=== PATIENT | female | born 1940 | race Hispanic/Latino ===

== ENCOUNTER 2021-12-28 14:00 | Inpatient (IN) | payer MEDICARE ==
[~2021-12-28] VITALS: Ht 147.3 cm; Wt 79.7 kg
[2021-12-28 16:31] LABS: BASOPHILS % (AUTO) 0.8 % (0.0-5.0); EOSINOPHILS % (AUTO) 3.8 % (0.0-8.0); HEMATOCRIT 38.9 % (36-48); LYMPHOCYTES % (AUTO) 24.1 % (21.0-51.0); MEAN CORPUSCULAR HEMOGLOBIN 29.6 pg (27.0-33.0); MEAN CORPUSCULAR HGB CONC 31.6 g/dL (32.0-36.0); MEAN CORPUSCULAR VOLUME 93.5 fL (79-99); MONOCYTES % (AUTO) 8.7 % (3.0-13.0); NEUTROPHILS % (AUTO) 62.3 % (40.0-77.0); PLATELET COUNT (AUTO) 383 K/uL (130-400); RED BLOOD CELL COUNT(AUTO) 4.16 MIL/uL (4.00-5.50); RED CELL DISTRIBUTION WIDTH 13.3 % (11.0-15.5); WHITE BLOOD COUNT (AUTO) 9.1 K/uL (4.8-10.8)
[2021-12-28 16:37] LABS: APPEARANCE,URINE Clear (CLEAR); BILIRUBIN,URINE Negative (NEGATIVE); COLOR,URINE Dark Yellow (YELLOW); GLUCOSE, URINE (UA) Negative (NEGATIVE); KETONES,URINE 15 mg/dL (NEGATIVE); LEUKOCYTE ESTERASE ,URINE Small (NEGATIVE); NITRATE,URINE Negative (NEGATIVE); OCCULT BLOOD,URINE Negative (NEGATIVE); PROTEIN,URINE Trace mg/dL (NEGATIVE)
[2021-12-28 16:44] LABS: ALBUMIN 3.6 g/dL (3.5-5.0); CARBON DIOXIDE 28 mmol/L (21-32); CHLORIDE 105 mmol/L (101-111); CREATININE 1.1 mg/dL (0.5-1.5); GLOMERULAR FILTR. RATE CALC 51 mL/min (>60); GLUCOSE,RANDOM 97 mg/dL (70-105); SODIUM SERUM 140 mmol/L (136-145); UREA NITROGEN, BLOOD 19 mg/dL (7-18)
[2021-12-28 16:45] LABS: INR 0.93 (0.85-1.15); PROTHROMBIN TIME 9.6 SEC (9.6-11.6)
[2021-12-28 16:54] LABS: CRP QUANTITATIVE < 2.00 mg/L (0.00-9.0)
[2021-12-28 17:06] LABS: BACTERIA,URINE Few /HPF (None Seen); RBC,URINE 0-1 /HPF (0-1)
[2021-12-28 17:07] LABS: MUCUS,URINE Few LPF (None Seen); SQUAMOUS EPITHELIAL CELL,UR Few /HPF (0-2)
[2021-12-28 17:41] VITALS: BP 165/67
[2021-12-31] VITALS (27 sets, daily range): BP systolic 110–146; BP diastolic 60–84
[2021-12-31] MEDS ORDERED: CEFAZOLIN SODIUM 1 GM VIAL IVP SCH (06:00)
[2021-12-31] MEDS ORDERED: LACTATED RINGERS 1000ML 1,000 ML IV ONE (06:45)
[2021-12-31] MEDS ORDERED: SIMV10TA97 PO (07:04)
[2021-12-31] MEDS ORDERED: LEVO75CA5 PO (07:04)
[2021-12-31] MEDS ORDERED: ROPIVACAINE 0.5% 5MG/ML 30ML IJ ONE ×2 (07:28→07:55)
[2021-12-31] MEDS ORDERED: TRANEXAMIC ACID 1000MG/10ML ONE (07:28)
[2021-12-31] MEDS ORDERED: SUCCINYLCHOLINE CHLORIDE 20 MG/ML 10 ML VIAL ONE (07:46)
[2021-12-31] MEDS ORDERED: PROPOFOL 10 MG/ML 20ML VIAL IV ONE (07:46)
[2021-12-31] MEDS ORDERED: ROCURONIUM 10MG/1ML SYR 10 MG/ML ML ONE (07:47)
[2021-12-31] MEDS ORDERED: FENTANYL CITRATE PF 50 MCG/1 ML 2ML VIAL ONE ×2 (07:47→08:32)
[2021-12-31] MEDS ORDERED: MIDAZOLAM HCL 1 MG/ML 2ML VIAL ONE (07:47)
[2021-12-31] MEDS ORDERED: DEXAMETHASONE SOD PHOSPHATE 10MG/ML 1ML VIAL ONE (08:07)
[2021-12-31] MEDS ORDERED: EPHEDRINE SULFATE 50 MG/ML AMPULE ONE (08:14)
[2021-12-31] MEDS ORDERED: CEFAZOLIN SODIUM 2 GM VIAL IV ONE (08:29)
[2021-12-31] MEDS ORDERED: KETOROLAC 30MG VIAL (30MG/ML) ONE (09:14)
[2021-12-31] MEDS ORDERED: NEOSTIGMINE 5MG/5ML SYR IV ONE (10:09)
[2021-12-31] MEDS ORDERED: GLYCOPYRROLATE 1 MG/5 ML SYRINGE ONE (10:09)
[2021-12-31] MEDS ORDERED: ONDANSETRON 4MG INJ ONE (10:45)
[2021-12-31] MEDS ORDERED: MEPERIDINE-PF 25 MG/ML SYG ONE ×2 (10:46→11:04)
[2021-12-31] MEDS ORDERED: LIDOCAINE HCL-MPF 1% 2ML VIAL IV PRN (11:00)
[2021-12-31] MEDS ORDERED: POTASSIUM CHLORIDE 10% ELIXIR 20 MEQ/15 ML UDCUP PO PRN (11:00)
[2021-12-31] MEDS ORDERED: POTASSIUM CHLORIDE 20MEQ/100ML 100 ML IV PRN (11:00)
[2021-12-31] MEDS ORDERED: KETOROLAC 15MG/ML VIAL (15MG/ML) IV PRN (11:00)
[2021-12-31] MEDS ORDERED: ONDANSETRON 4MG INJ IVP PRN (11:00)
[2021-12-31] MEDS ORDERED: KCL 20 MEQ ERTAB PO PRN (11:00)
[2021-12-31] MEDS ORDERED: CALCIUM CARB 500MG PO PRN (11:00)
[2021-12-31] MEDS ORDERED: TRAMADOL HCL 50 MG TABLET PO PRN (11:00)
[2021-12-31] MEDS ORDERED: FERROUS FUMARATE 324 MG TABLET PO PRN (11:00)
[2021-12-31] MEDS ORDERED: KETOROLAC 15MG/ML VIAL (15MG/ML) ONE (11:04)
[2021-12-31] MEDS: FAMOTIDINE 20MG TAB PO SCH (12:47)
[2021-12-31] MEDS: HYDROCODONE/ACETAMINOPHEN 10/325 MG TAB PO PRN ×2 (12:47→16:38)
[2021-12-31] MEDS: GABAPENTIN 100 MG CAPSULE PO SCH ×2 (15:02→20:43)
[2021-12-31] MEDS ORDERED: BENZOCAINE/MENTH/CETYLPYRD CL 1 EACH LOZENGE MM PRN (16:30)
[2021-12-31] MEDS: CEFAZOLIN SODIUM 1 GM VIAL IVP SCH (16:37)
[2021-12-31] MEDS: ZOSYN 3.375GM +NS 50ML IV SCH (17:57)
[2021-12-31] MEDS: 0.9%NACL 1000ML 1,000 ML IV SCH ×2 (18:10→20:42)
[2021-12-31] MEDS: ASPIRIN 325MG TAB PO SCH (20:42)
[2021-12-31] MEDS: SIMVASTATIN 10 MG TABLET PO SCH (20:43)
[2022-01-01 00:18] VITALS: BP 133/75
[2022-01-01] MEDS: CEFAZOLIN SODIUM 1 GM VIAL IVP SCH (00:19)
[2022-01-01 03:41] VITALS: BP 142/80
[2022-01-01] MEDS: ZOSYN 3.375GM +NS 50ML IV SCH ×2 (04:27→17:52)
[2022-01-01] MEDS: HYDROCODONE/ACETAMINOPHEN 10/325 MG TAB PO PRN ×3 (04:27→15:56)
[2022-01-01 05:02] LABS: HEMATOCRIT 32.6 % (36-48); MEAN CORPUSCULAR HEMOGLOBIN 29.6 pg (27.0-33.0); MEAN CORPUSCULAR HGB CONC 32.2 g/dL (32.0-36.0); MEAN CORPUSCULAR VOLUME 91.8 fL (79-99); RED BLOOD CELL COUNT(AUTO) 3.55 MIL/uL (4.00-5.50); RED CELL DISTRIBUTION WIDTH 13.1 % (11.0-15.5)
[2022-01-01 05:12] LABS: POTASSIUM 4.3 mmol/L (3.5-5.1)
[2022-01-01] MEDS: LEVOTHYROXINE 75 MCG TABLET PO SCH (06:32)
[2022-01-01] MEDS: 0.9%NACL 1000ML 1,000 ML IV SCH (07:00)
[2022-01-01 07:59] VITALS: BP 128/68
[2022-01-01] MEDS: FAMOTIDINE 20MG TAB PO SCH (08:27)
[2022-01-01] MEDS: POLYETHYLENE GLYCOL 3350 17 GM POWD.PACK PO SCH (08:27)
[2022-01-01] MEDS: ASPIRIN 325MG TAB PO SCH ×2 (08:27→20:32)
[2022-01-01] MEDS: GABAPENTIN 100 MG CAPSULE PO SCH ×3 (08:27→20:32)
[2022-01-01] MEDS ORDERED: LEVOTHYROXINE 75 MCG TABLET PO SCH (09:00)
[2022-01-01 11:11] VITALS: BP 117/53
[2022-01-01] MEDS: CYCLOBENZAPRINE HCL 10 MG TABLET PO PRN ×2 (13:20→21:49)
[2022-01-01 15:27] VITALS: BP 149/94
[2022-01-01 20:00] VITALS: BP 122/72
[2022-01-01] MEDS: SIMVASTATIN 10 MG TABLET PO SCH (20:32)
[2022-01-02] VITALS: BP 116/61
[2022-01-02 04:00] VITALS: BP 122/63
[2022-01-02] MEDS: LEVOTHYROXINE 75 MCG TABLET PO SCH (05:42)
[2022-01-02] MEDS: ZOSYN 3.375GM +NS 50ML IV SCH ×2 (05:42→18:08)
[2022-01-02] MEDS: HYDROCODONE/ACETAMINOPHEN 10/325 MG TAB PO PRN ×3 (05:57→20:51)
[2022-01-02 07:56] VITALS: BP 123/67
[2022-01-02] MEDS: ASPIRIN 325MG TAB PO SCH ×2 (08:18→20:51)
[2022-01-02] MEDS: POLYETHYLENE GLYCOL 3350 17 GM POWD.PACK PO SCH (08:19)
[2022-01-02] MEDS: GABAPENTIN 100 MG CAPSULE PO SCH ×3 (08:19→20:51)
[2022-01-02] MEDS: CYCLOBENZAPRINE HCL 10 MG TABLET PO PRN (08:19)
[2022-01-02] MEDS: FAMOTIDINE 20MG TAB PO SCH (08:19)
[2022-01-02 11:19] VITALS: BP 123/74
[2022-01-02 16:07] VITALS: BP 122/62
[2022-01-02 20:00] VITALS: BP 122/71
[2022-01-02] MEDS: SIMVASTATIN 10 MG TABLET PO SCH (20:51)
[2022-01-03] VITALS: BP 99/48
[2022-01-03 04:00] VITALS: BP 119/66
[2022-01-03] MEDS: ZOSYN 3.375GM +NS 50ML IV SCH (05:00)
[2022-01-03] MEDS: LEVOTHYROXINE 75 MCG TABLET PO SCH (05:03)
[2022-01-03] MEDS: GABAPENTIN 100 MG CAPSULE PO SCH ×2 (07:16→13:53)
[2022-01-03] MEDS: ASPIRIN 325MG TAB PO SCH (07:16)
[2022-01-03] MEDS: HYDROCODONE/ACETAMINOPHEN 10/325 MG TAB PO PRN (07:16)
[2022-01-03] MEDS: POLYETHYLENE GLYCOL 3350 17 GM POWD.PACK PO SCH (07:16)
[2022-01-03] MEDS: FAMOTIDINE 20MG TAB PO SCH (07:16)
[2022-01-03 08:01] VITALS: BP 123/70
[2022-01-03] MEDS ORDERED: MAGNESIUM CITRATE 296 ML SOLUTION ONE (09:19)
[2022-01-03] MEDS ORDERED: MAGNESIUM CITRATE 296 ML SOLUTION PO SCH (09:30)
[2022-01-03 10:54] VITALS: BP 121/61
[2022-01-03] MEDS ORDERED: BISACODYL 10 MG SUPP.RECT RC PRN (11:00)
== END 2022-01-03 14:49 | DRG 470 ==
LOC: EDSTATUS 14:00 → OBSVTOIN 12-31 05:56 → DAHIP 12-31 05:56 → 4CH 12-31 12:37 → 4AH 01-01 06:21
PROVIDERS: ADMIT Student in an Organized Health Care Education/Training Program; ATTEND Student in an Organized Health Care Education/Training Program
PROC: 3E0T3BZ Introduction of Anesthetic Agent into Peripheral Nerves and Plexi, Percutaneous Approach (ICD-10-PCS; 2021-12-31)
PROC: 0SRD069 Replacement of Left Knee Joint with Oxidized Zirconium on Polyethylene Synthetic Substitute, Cemented, Open Approach (ICD-10-PCS; principal; 2021-12-31 07:30)
DX: M17.12 Unilateral primary osteoarthritis, left knee (principal); N39.0 Urinary tract infection, site not specified; E78.5 Hyperlipidemia, unspecified; Z98.890 Other specified postprocedural states
CPT/HCPCS: 36415; 73560; 80048; 81001; 82040; 84134; 85025; 85027; 85610; 86140; 87077; 87088; 87186; 87426; 87641; 93005; 97039; G0378; J0330; J0690; J1100; J1885; J2175; J2250; J2405; J2543; J2704; J2710; J2795; J3010; J3490; J7120